=== PATIENT | female | born 2000 | race Caucasian/White ===

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

== ENCOUNTER 2019-01-05 23:07 | Emergency (ER) | payer MEDICAID, SELFPAY ==
--- NOTE | 2019-01-05 23:08 | W.ED.GENAD ---
Discharge Plan Disposition Patient Disposition: HOME Condition: Good Discharge Details Chief Complaint: Headache Clinical Impression: Headache Primary Care Provider: None,None ED Provider: Jabari Vazquez Home Meds and New Rx's Prescriptions: No Action No Known Home Meds RF: 0 Discharge Instructions Instructions: General Headache (ED) Additional Instructions: You can take 1000mg tylenol and 600mg ibuprofen every 6 hours for pain as needed If you have high fevers, persistent vomit or severe worsening of pain return to the emergency department Medical Decision Making 18 yo female who denies chronic medical problems comes in with headache. She is not sure when it started but has been having headaches since a fall earlier this, had negative head ct and diagnosed with concussion. Hasn't taken any meds today for the pain. Localizes the pain across the front of the head. HAs normal gait, no focal motor or sensation deficits, CN II-XII are intact. She has no fever or meingismus to suggest records analyst infection and pain as slowly been worsening so doubt SAH. Do not feel head imaging indicated at this time. Suspect migraine vs tension headache, will mediate and reassess. She has no findings to suggest cerebral venous thrombosis or cavernous sinus thrombosis pt feeling much better, speaking in full sentences and laughing in no distress. She has no pcp so will have her try to get set up with someone within 2 weeks for her headaches and possible concussion. Return precautions given Differential Diagnosis tension headache, migraine, post concussion syndrome HPI General Mode of arrival: ambulatory. Date/Time Provider Initiated Documentation: 01/05/19 23:08. Limitations to Documentation: no limitations. Information obtained by: patient. History of Present Illness 18 year old F presents to the emergency department with the chief complaint of headache, described as severe, with intensity rated at 8. Quality is described as sharp, and is localized to the head. and it has been constant. No relieving factors improve symptom(s), No exacerbating factors reported . Patient did receive the following treatments prior to arrival, none Related Data Home Medications Medication Instructions Recorded Confirmed Unknown [No Known Home Meds] 01/05/19 01/05/19 Allergies Allergy/AdvReac Type Severity Reaction Status Date / Time No Known Allergies Allergy Unverified 01/05/19 23:24 General THIAGO: 4 Review of Systems Review of Systems All systems reviewed & are unremarkable except as noted in HPI and below Constitutional Denies chills, Denies fever(s) and Denies weakness ENT Denies change in voice Cardiovascular Denies chest pain and Denies dyspnea Respiratory Denies cough and Denies dyspnea Gastrointestinal Denies abdominal pain, Denies nausea and Denies vomiting Genitourinary Denies dysuria Integumentary/Breasts Denies rash Neurologic Denies weakness Endocrine Denies heat intolerance [facility] Medical History Anxiety (Chronic) Depression (Chronic) Surgical History No significant past surgical history (Acute) Social History Smoking and Tabacco status: Never alcohol intake: never substance use type: does not use Exam Const General: no acute distress Orientation: alert HENMT Head: normal to inspection Ears: external ears normal General nose exam: external nose normal Mouth: moist mucous membranes Eyes General: appearance normal, both eyes and all related structures Neck Neck: normal visual inspection Resp Effort & Inspection: normal respiratory effort and able to speak in complete sentences Cardio Rate: regular rate Skin General skin exam: no rashes or lesions noted Neuro General: alert and oriented x3 Extrem General: normal to inspection Psych Mental Status: mental status grossly normal
[2019-01-05 23:15] VITALS: BP 121/76; PULSE 98; RESP 16; TEMP 37.6; O2SAT 96
--- NOTE | 2019-01-05 23:15 | ED.GENADUL_ITS ---
Discharge Plan Disposition Patient Disposition: HOME Condition: Good Discharge Details Chief Complaint: Headache Clinical Impression: Headache Primary Care Provider: None,None ED Provider: Jabari Vazquez Home Meds and New Rx's Prescriptions: No Action No Known Home Meds RF: 0 Discharge Instructions Instructions: General Headache (ED) Additional Instructions: You can take 1000mg tylenol and 600mg ibuprofen every 6 hours for pain as needed If you have high fevers, persistent vomit or severe worsening of pain return to the emergency department Medical Decision Making 18 yo female who denies chronic medical problems comes in with headache. She is not sure when it started but has been having headaches since a fall earlier this, had negative head ct and diagnosed with concussion. Hasn't taken any meds today for the pain. Localizes the pain across the front of the head. HAs normal gait, no focal motor or sensation deficits, CN II-XII are intact. 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 Do not feel head imaging indicated at this time. Suspect migraine vs tension headache, will mediate and reassess. She has no findings to suggest cerebral venous thrombosis or cavernous sinus thrombosis pt feeling much better, speaking in full sentences and laughing in no distress. She has no pcp so will have her try to get set up with someone within 2 weeks for her headaches and possible concussion. Return precautions given Differential Diagnosis tension headache, migraine, post concussion syndrome HPI General Mode of arrival: ambulatory . Date/Time Provider Initiated Documentation: 01/05/19 23:08 . Limitations to Documentation: no limitations . Information obtained by: patient . History of Present Illness 18 year old F presents to the emergency department with the chief complaint of headache, described as severe, with intensity rated at 8. Quality is described as sharp, and is localized to the head. and it has been constant. No relieving factors improve symptom(s), No exacerbating factors reported . Patient did receive the following treatments prior to arrival, none Related Data Home Medications Medication Instructions Recorded Confirmed Unknown [No Known Home Meds] 01/05/19 01/05/19 Allergies Allergy/AdvReac Type Severity Reaction Status Date / Time No Known Allergies Allergy Unverified 01/05/19 23:24 General THIAGO: 4 Review of Systems Review of Systems All systems reviewed & are unremarkable except as noted in HPI and below Constitutional Denies chills, Denies fever(s) and Denies weakness ENT Denies change in voice Cardiovascular Denies chest pain and Denies dyspnea Respiratory Denies cough and Denies dyspnea Gastrointestinal Denies abdominal pain, Denies nausea and Denies vomiting Genitourinary Denies dysuria Integumentary/Breasts Denies rash Neurologic Denies weakness Endocrine Denies heat intolerance [facility] [place] Medical History Anxiety (Chronic) Depression (Chronic) Surgical History No significant past surgical history (Acute) Social History Smoking and Tabacco status: Never alcohol intake: never substance use type: does not use Exam Const General: no acute distress Orientation: alert HENMT Head: normal to inspection Ears: external ears normal General nose exam: external nose normal Mouth: moist mucous membranes Eyes General: appearance normal, both eyes and all related structures Neck Neck: normal visual inspection Resp Effort & Inspection: normal respiratory effort and able to speak in complete sentences Cardio Rate: regular rate Skin General skin exam: no rashes or lesions noted Neuro General: alert and oriented x3 Extrem General: normal to inspection Psych Mental Status: mental status grossly normal
[2019-01-05] MEDS: Normal Saline 1,000 ML 1000 ML IV (23:50)
[2019-01-05] MEDS: Ketorolac 15 MG/ML VIAL IVP (23:51)
[2019-01-05] MEDS: Normal Saline Flush 10 ML SYR IVP (23:52)
[2019-01-05] MEDS: Prochlorperazine 10 MG/2 ML VIAL IVP (23:52)
[2019-01-06 00:19] VITALS: BP 120/75; PULSE 90; RESP 16; O2SAT 97
--- NOTE | 2019-01-06 08:10 | PDOC.ERCMPRO ---
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 Referral faxed to [facility] this am.
--- NOTE | 2019-01-06 08:11 | CMPROGNOTE_ITS ---
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 Referral faxed to [facility] this am.
== END 2019-01-06 00:35 | disposition home or self-care (01) ==
LOC: ER 01-06 00:06
PROVIDERS: Emergency Provider Emergency Medicine
DX: R51 Headache (principal)
CPT/HCPCS: 96361; 96374; 96375; 99284; J0780; J1885

== ENCOUNTER 2019-02-22 13:47 | Outpatient (REF) | payer MEDICAID, SELFPAY ==
[2019-02-23 15:29] LABS: Chlamydia Result Negative; GC Result Negative; Specimen Description URINE
== END 2019-02-22 14:07 ==
LOC: LBN 13:47
PROVIDERS: Visit Provider Advanced Practice Midwife
DX: Z72.51 High risk heterosexual behavior (principal); Z11.3 Encounter for screening for infections with a predominantly sexual mode of transmission
CPT/HCPCS: 87491; 87591

== ENCOUNTER 2019-03-07 19:56 | Emergency (ER) | payer MEDICAID, SELFPAY ==
[2019-03-07 19:58] VITALS: BP 134/79; PULSE 82; RESP 18; TEMP 36.6; O2SAT 98
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
== END 2019-03-07 20:25 | disposition home or self-care (01) ==
PROVIDERS: Emergency Provider Emergency Medicine; PCP Nurse Practitioner Adult Health
DX: N93.9 Abnormal uterine and vaginal bleeding, unspecified (principal); Z32.02 Encounter for pregnancy test, result negative
CPT/HCPCS: 81025; 99282

== ENCOUNTER 2019-04-03 22:06 | Emergency (ER) | payer MEDICAID, SELFPAY ==
[2019-04-03 22:25] VITALS: BP 116/76; PULSE 82; RESP 18; TEMP 37.1; O2SAT 96
[2019-04-03 22:43] VITALS: RESP 18
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
[2019-04-03] MEDS: diazePAM 5 MG TAB PO (23:24)
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
== END 2019-04-03 23:30 | disposition home or self-care (01) ==
PROVIDERS: Emergency Provider Student in an Organized Health Care Education/Training Program; PCP Nurse Practitioner Adult Health
DX: F41.9 Anxiety disorder, unspecified (principal); F31.0 Bipolar disorder, current episode hypomanic
CPT/HCPCS: 99283

== ENCOUNTER 2019-05-20 01:01 | Emergency (ER) | payer MEDICAID, SELFPAY ==
[2019-05-20 01:07] VITALS: BP 132/71; PULSE 89; RESP 16; TEMP 36.8; O2SAT 99
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
[2019-05-20 02:24] LABS: Abs Immature Grans 0.03 k/cumm (0.0-0.09); Absolute Basophil Count 0.03 k/cumm (0.0-0.2); Absolute Eosinophil Count 0.19 k/cumm (0.0-0.7); Absolute Lymphocyte Count 3.95 k/cumm (1.2-3.4); Absolute Monocyte Count 1.06 k/cumm (0.11-0.7); Absolute Neutrophil Count 6.31 k/cumm (1.2-6.7); Basophils % 0.3; Eosinophils % 1.6; HCT 37.4 % (36.0-46.0); HGB 12.5 g/dL (12.0-15.5); Immature Grans % 0.3; Lymphocytes % 34.1; Mean Corp. HGB Concentration 33.4 g/dL (32.0-36.0); Mean Corpuscular Volume 80.8 fL (80-95); Monocytes % 9.2; Neutrophils % 54.5; Platelet Count 346 x1000/uL (130-400); RBC 4.63 m/cumm (4.00-5.20); RBC Distribution Width 12.8 % (11.7-14.6); White Blood Cell Count 11.57 k/cumm (4.4-10.8)
[2019-05-20 02:39] LABS: ALT 26 U/L (12-78); AST 16 U/L (15-37); Albumin 3.4 g/dL (3.4-5.0); Alkaline Phosphatase 102 U/L (46-116); Anion Gap 5.7 mmol/L (3-11); BUN 10 mg/dL (7-18); Bilirubin, Total 0.2 mg/dL (0.2-1.0); CO2 25.3 mmol/L (21.0-32.0); Calcium 9.2 mg/dL (8.5-10.1); Chloride 104 mmol/L (98-107); Glucose 119 mg/dL (70-100); Potassium 3.5 mmol/L (3.5-5.1); Sodium 135 mmol/L (136-145); Total Protein 7.5 g/dL (6.4-8.2)
[2019-05-20 03:06] VITALS: BP 113/57; PULSE 74; RESP 16; O2SAT 99
== END 2019-05-20 03:07 | disposition home or self-care (01) ==
PROVIDERS: Emergency Provider Emergency Medicine; PCP Nurse Practitioner Adult Health
DX: R11.10 Vomiting, unspecified (principal)
CPT/HCPCS: 36415; 80053; 99283; 85025

== ENCOUNTER 2019-07-01 16:42 | Outpatient (REF) | payer MEDICAID, SELFPAY ==
[2019-07-01 19:20] LABS: TSH (W/Ref FT4) 1.93 uIU/mL (0.36-3.74)
== END 2019-07-01 17:02 ==
LOC: LBN 16:42
PROVIDERS: PCP Nurse Practitioner Adult Health; Visit Provider Nurse Practitioner Adult Health
DX: R00.2 Palpitations (principal); F32.9 Major depressive disorder, single episode, unspecified
CPT/HCPCS: 84443

== ENCOUNTER 2019-07-11 21:47 | Emergency (ER) | payer MEDICAID, SELFPAY ==
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
[2019-07-11 21:51] VITALS: BP 127/91; PULSE 78; RESP 16; TEMP 36.6; O2SAT 97
[2019-07-11 22:34] VITALS: BP 127/91; PULSE 78; RESP 16; O2SAT 97
[2019-07-11 22:37] LABS: Abs Immature Grans 0.02 k/cumm (0.0-0.09); Absolute Basophil Count 0.03 k/cumm (0.0-0.2); Absolute Eosinophil Count 0.32 k/cumm (0.0-0.7); Absolute Monocyte Count 0.93 k/cumm (0.11-0.7); Absolute Neutrophil Count 5.68 k/cumm (1.2-6.7); Basophils % 0.3; Eosinophils % 2.9; HCT 36.6 % (36.0-46.0); HGB 12.4 g/dL (12.0-15.5); Immature Grans % 0.2; Lymphocytes % 36.9; Mean Corp. HGB Concentration 33.9 g/dL (32.0-36.0); Mean Corpuscular Hemoglobin 27.3 pg (27.0-33.0); Mean Corpuscular Volume 80.6 fL (80-95); Mean Platelet Volume 10.2 fL (8.0-11.0); Monocytes % 8.4; Neutrophils % 51.3; Platelet Count 377 x1000/uL (130-400); RBC 4.54 m/cumm (4.00-5.20); RBC Distribution Width 12.9 % (11.7-14.6); White Blood Cell Count 11.07 k/cumm (4.4-10.8)
[2019-07-11 22:38] LABS: Absolute Lymphocyte Count 4.08 k/cumm (1.2-3.4)
[2019-07-11 23:02] LABS: ALT 26 U/L (14-59); AST 18 U/L (15-37); Albumin 3.2 g/dL (3.4-5.0); Alkaline Phosphatase 115 U/L (46-116); Anion Gap 9.8 mmol/L (3-11); BUN 6 mg/dL (7-18); Bilirubin, Total 0.2 mg/dL (0.2-1.0); CO2 24.2 mmol/L (21.0-32.0); Calcium 8.7 mg/dL (8.5-10.1); Chloride 105 mmol/L (98-107); Glucose 101 mg/dL (70-100); Magnesium 1.6 mg/dL (1.8-2.4); Potassium 3.8 mmol/L (3.5-5.1); Sodium 139 mmol/L (136-145); TSH 1.69 uIU/mL (0.36-3.74); Total Protein 7.2 g/dL (6.4-8.2); Troponin I < 0.05 ng/mL (0.00-0.06)
--- NOTE | 2019-07-11 23:04 | NUR.NOTE ---
Nursing Note: pt refused IV due to her anxiety
--- NOTE | 2019-07-11 23:20 | DI.RAD_ITS ---
SYMPTOM/DIAGNOSIS: PALPITATIONS PA AND LATERAL CHEST: Comparison is made with 13 Dec 2018 The heart size is normal. The lungs are reasonably well inflated and appear clear. No infiltrate or effusion is seen. IMPRESSION: Negative chest x-ray
--- NOTE | 2019-07-11 23:23 | DI.VRAD_ITS ---
EXAM: XR Chest, 2 Views EXAM DATE/TIME: 07/11/2019 10:42 PM CLINICAL HISTORY: 19 years old, female; Other: Palpitations TECHNIQUE: Imaging protocol: XR of the chest Views: 2 views. COMPARISON: CR XR CHEST 2V PA LATERAL 12/13/2018 4:43 PM FINDINGS: Lungs: Unremarkable. No consolidation. Pleural space: Unremarkable. No evidence of pneumothorax. Heart/Mediastinum: Unremarkable. Heart size within normal limits for technique. Bones/joints: Unremarkable. IMPRESSION: No acute findings. Dictated and Authenticated by: Tino Lentz MD. Ordering:CONNER Paige MD
[2019-07-11] MEDS: Magnesium Oxide 400 MG TAB PO (23:41)
[2019-07-11 23:50] VITALS: BP 127/91; PULSE 78; RESP 16; O2SAT 97
== END 2019-07-11 23:50 | disposition home or self-care (01) ==
PROVIDERS: Emergency Provider Physician Assistant; PCP Nurse Practitioner Adult Health
DX: R00.2 Palpitations (principal); E83.42 Hypomagnesemia
CPT/HCPCS: 36415; 80053; 93005; 99285; 71046; 83735; 84443; 84484; 85025; 93010; 93225

== ENCOUNTER 2019-07-13 14:04 | Outpatient (CLI) | payer MEDICAID, SELFPAY | END 2019-07-13 14:24 | PROVIDERS: PCP Nurse Practitioner Adult Health; Visit Provider Nurse Practitioner Adult Health | DX: R00.2 Palpitations (principal) | CPT/HCPCS: 93225 ==

== ENCOUNTER 2019-07-28 15:29 | Outpatient (CLI) | payer MEDICAID, SELFPAY ==
--- NOTE | 2019-07-29 12:45 | HOLTER_ITS ---
DATE OF DICTATION: July 29, 2019 48-HOUR HOLTER MONITOR INDICATION: Palpitations. Baseline sinus rhythm. Average heart rate 79 bpm, minimum heart rate 57 bpm, maximum heart rate 142 bpm. Rare isolated ventricular ectopy. No non-sustained VT. No PAC's. No SVT or atrial fibrillation. No significant bradyarrhythmias or pauses. No diary entries. Overall sinus rhythm with very rare ectopy.
== END 2019-07-28 15:49 ==
PROVIDERS: PCP Nurse Practitioner Adult Health; Visit Provider Physician Assistant
DX: R00.2 Palpitations (principal)
CPT/HCPCS: 93226

== ENCOUNTER 2019-09-22 17:50 | Emergency (ER) | payer MEDICAID, SELFPAY ==
[2019-09-22 17:53] VITALS: BP 131/85; PULSE 85; RESP 18; TEMP 36.3; O2SAT 96
[2019-09-22 18:19] LABS: Bilirubin Negative (Negative); Blood Negative (Negative); Clarity Clear (Clear); Glucose Negative (Negative); Ketones Negative (Negative); Leukocyte Esterase Negative (Negative); Nitrite Negative (Negative); Specific Gravity 1.025 (1.005-1.025); Urobilinogen 0.2 EU/dL (Up TO 0.2); pH 6.5 (5-8)
[2019-09-22 18:30] LABS: Abs Immature Grans 0.02 k/cumm (0.0-0.09); Absolute Basophil Count 0.03 k/cumm (0.0-0.2); Absolute Lymphocyte Count 3.34 k/cumm (1.2-3.4); Absolute Monocyte Count 0.57 k/cumm (0.11-0.7); Absolute Neutrophil Count 6.51 k/cumm (1.2-6.7); Basophils % 0.3; Eosinophils % 1.9; HCT 40.1 % (36.0-46.0); HGB 13.2 g/dL (12.0-15.5); Immature Grans % 0.2; Lymphocytes % 31.3; Mean Corp. HGB Concentration 32.9 g/dL (32.0-36.0); Mean Corpuscular Hemoglobin 26.2 pg (27.0-33.0); Mean Corpuscular Volume 79.7 fL (80-95); Mean Platelet Volume 9.5 fL (8.0-11.0); Monocytes % 5.3; Platelet Count 453 x1000/uL (130-400); RBC 5.03 m/cumm (4.00-5.20); RBC Distribution Width 13.3 % (11.7-14.6); White Blood Cell Count 10.67 k/cumm (4.4-10.8)
[2019-09-22 18:43] LABS: ALT 44 U/L (14-59); AST 29 U/L (15-37); Albumin 3.7 g/dL (3.4-5.0); Alkaline Phosphatase 126 U/L (46-116); Anion Gap 10.9 mmol/L (3-11); BUN 9 mg/dL (7-18); Bilirubin, Total 0.2 mg/dL (0.2-1.0); CO2 24.1 mmol/L (21.0-32.0); CREATININE 0.77 mg/dL (0.55-1.02); Chloride 104 mmol/L (98-107); Glucose 117 mg/dL (70-100); Lipase 171 U/L (73-393); Potassium 3.7 mmol/L (3.5-5.1); Sodium 139 mmol/L (136-145)
[2019-09-22] MEDS: Omnipaque 350 MG/ML 100 ML BTL IJ (19:11)
--- NOTE | 2019-09-22 19:12 | DI.CT_ITS ---
EXAM: CT ABDOMEN PELVIS W CLINICAL HISTORY: pelvic and lower mid abdominal pain TECHNIQUE: Imaging Protocol: Axial computed tomography images with coronal and sagittal reformatted images were created and reviewed CONTRAST MATERIAL: Intravenous: Omnipaque 350 Contrast volume:100 mL contrast route:IV - Oral: No COMPARISON: No exams were available for comparison FINDINGS: ABDOMEN: Lung Bases: Normal where visualized. Liver: There is mild diffue fatty infiltration of the liver. No measurable mass. The liver is mildly enlarged. The portal, superior mesenteric and splenic veins are patent. Gallbladder and biliary tract: No radiodense calculus or dilation. Pancreas: Normal density, no abnormal calcifications or inflammatory process. Spleen: Normal. Kidneys: Normal size, contour and axis. No radiodense stones or obstructive uropathy. No masses seen. Adrenal glands: No masses seen. Abdominal Aorta: Abdominal portion non-dilated. PELVIS: Bladder: Symmetric distention, no gross wall thickening. Bowel: No obstruction or bowel wall thickening. The appendix is normal in size without evidence of ad jacent mesenteric fat stranding or adjacent fluid collection. Peritoneal cavity: No ascites, collection or mesenteric inflammatory response. Bones: Within normal limits. Reproductive organs: Within normal limits. Lymph nodes: Unremarkable. Impression: No evidence of an acute abdominal or pelvic process. DATA REPOSITORY: All CT scans at this facility are submitted to the National Radiology Data Registry (NRDR) Dose Index Registry (DIR) with the [employer] (ACR). RADIATION OPTIMIZATION: All CT scans at this facility use at least one of these dose optimization te chniques: automated exposure control; mA and/or kV adjustment per patient size (includes targeted exa ms where dose is matched to clinical indication); or iterative reconstruction.
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
--- NOTE | 2019-09-22 19:25 | DI.VRAD_ITS ---
PROCEDURE INFORMATION: Exam: CT Abdomen And Pelvis With Contrast Exam date and time: 09/22/2019 7:04 PM Clinical history: 19 years old, female; Localized; Patient HX: Pelvic and lower mid abdominal pain TECHNIQUE: Imaging protocol: Computed tomography of the abdomen and pelvis with intravenous contrast. Radiation optimization: All CT scans at this facility use at least one of these dose optimization techniques: automated exposure control; mA and/or kV adjustment per patient size (includes targeted exams where dose is matched to clinical indication); or iterative reconstruction. Contrast material: [id number]; Contrast volume: 100 ml; Contrast route: IV LAC 20G; COMPARISON: No relevant prior studies available. FINDINGS: Lungs: The visualized portions of the lung bases demonstrate no acute disease. Mediastinum: A small hiatal hernia is present. Liver: There is mild enlargement of the liver. There is a diffuse decrease in hepatic parenchymal density, consistent with fatty infiltration. Gallbladder and bile ducts: Normal. No calcified stones. No ductal dilation. Pancreas: Normal. No ductal dilation. Spleen: Normal. No splenomegaly. Adrenals: Normal. No mass. Kidneys and ureters: Normal. No hydronephrosis. Stomach and bowel: Unremarkable. No obstruction. No mucosal thickening. Appendix: No evidence of appendicitis. Intraperitoneal space: Unremarkable. No free air. No significant fluid collection. Vasculature: Unremarkable. No abdominal aortic aneurysm. Lymph nodes: Unremarkable. No enlarged lymph nodes. Bladder: Unremarkable as visualized. Reproductive: Unremarkable as visualized. Bones/joints: Unremarkable. No acute fracture. Soft tissues: Unremarkable. IMPRESSION: Negative for acute abdominopelvic pathology. Dictated and Authenticated by: Kadeem Gomez MD. Ordering:POLLO Rico MD
[2019-09-22] MEDS: Normal Saline 1,000 ML 1000 ML IV (19:30)
[2019-09-22] MEDS: Ketorolac 30 MG/ML VIAL IVP (19:50)
[2019-09-22] MEDS: cefTRIAXone 250 MG VIAL IV (19:51)
[2019-09-22] MEDS: metroNIDAZOLE 500 MG TAB 2000 MG PO (19:52)
[2019-09-22] MEDS: Azithromycin 250 MG TAB 1000 MG PO (19:52)
[2019-09-22] MEDS: Normal Saline 50 ML 100 ML (19:53)
[2019-09-22 20:29] VITALS: BP 131/85; PULSE 85; RESP 18; TEMP 36.3; O2SAT 96
[2019-09-22 20:35] VITALS: BP 121/81; PULSE 75; TEMP 36.5
== END 2019-09-22 20:25 | disposition home or self-care (01) ==
PROVIDERS: Emergency Provider Student in an Organized Health Care Education/Training Program; PCP Nurse Practitioner Adult Health
DX: N89.8 Other specified noninflammatory disorders of vagina (principal); R10.2 Pelvic and perineal pain
CPT/HCPCS: 36415; 80053; 81025; 83690; 87491; 87591; 96365; 96375; 99285; 74177; 81003; 85025; 99284; J0696; J1885; J3490

== ENCOUNTER 2019-12-15 09:19 | Outpatient (CLI) | payer MEDICAID, SELFPAY ==
[2019-12-15 10:42] LABS: HCG Quant, Pregnancy < 1 mIU/mL (1-3)
== END 2019-12-15 09:39 ==
PROVIDERS: PCP Nurse Practitioner Adult Health; Visit Provider Obstetrics & Gynecology
DX: Z87.42 Personal history of other diseases of the female genital tract (principal)
CPT/HCPCS: 36415; 84702

== ENCOUNTER 2020-01-03 09:36 | Outpatient (CLI) | payer MEDICAID, SELFPAY ==
[2020-01-03 10:25] LABS: TSH (W/Ref FT4) 2.98 uIU/mL (0.36-3.74)
[2020-01-03 10:26] LABS: HCG Quant, Pregnancy < 1 mIU/mL (1-3)
== END 2020-01-03 09:56 ==
PROVIDERS: PCP Nurse Practitioner Adult Health; Visit Provider Nurse Practitioner Women's Health
DX: N91.2 Amenorrhea, unspecified (principal)
CPT/HCPCS: 36415; 84443; 84702